=== PATIENT | female | born 1990 | race Hispanic/Latino ===

== ENCOUNTER 2024-05-13 13:26 | Emergency (ER) | payer SELFPAY ==
[2024-05-13 13:31] VITALS: TEMP 97.8
[2024-05-13 14:32] LABS: BASOPHILS # (AUTO) 0.1 (0.0-0.1); EOSINOPHILS # (AUTO) 0.1 (0.0-0.4); EOSINOPHILS % 1.6 % (0.0-6.0); LYMPHOCYTES # (AUTO) 2.5 (1.0-3.2); LYMPHOCYTES % 40.6 % (18.0-39.1); MEAN CORPUSCULAR HGB CONC 34.1 g/dL (31-35); MEAN CORPUSCULAR VOLUME 93.8 fL (81-99); MONOCYTES # (AUTO) 0.4 (0.2-0.8); MONOCYTES % 6.9 % (4.4-11.3); NEUTROPHILS # (AUTO) 3.1 (2.1-6.9); NEUTROPHILS % 49.6 % (38.7-80.0); PLATELET COUNT 311 x10e3/uL (140-360); RED BLOOD COUNT 4.69 x10e6/uL (3.6-5.1); RED CELL DISTRIBUTION WIDTH 12.8 % (11.7-14.4); WHITE BLOOD COUNT 6.26 x10e3/uL (4.8-10.8)
[2024-05-13 14:37] LABS: ALANINE AMINOTRANSFERASE 8 IU/L (0-55); ALBUMIN 4.3 g/dL (3.5-5.0); ALBUMIN/GLOBULIN RATIO 1.8 (0.8-2.0); ALKALINE PHOSPHATASE 53 IU/L (40-150); ANION GAP 15.9 mmol/L (8-16); BILIRUBIN,TOTAL 0.9 mg/dL (0.2-1.2); BLOOD UREA NITROGEN 12 mg/dL (7-26); BUN/CREATININE RATIO 15 (6-25); CALCIUM 8.8 mg/dL (8.4-10.2); CARBON DIOXIDE 21 mmol/L (22-29); CHLORIDE 105 mmol/L (98-107); CREATININE, SERUM 0.78 mg/dL (0.57-1.11); EST GLOMERULAR FILTRATION RATE 104 ML/MIN (>=60); GLUCOSE 89 mg/dL (74-118); MAGNESIUM 1.8 MG/DL (1.3-2.1); POTASSIUM 3.9 mmol/L (3.5-5.1); SODIUM 138 mmol/L (136-145); TOTAL PROTEIN 6.7 g/dL (6.5-8.1)
[2024-05-13] MEDS: SODIUM CHLORIDE 0.9% 1000ML 1,000 ML IV STA (14:48)
[2024-05-13 14:57] LABS: THYROID STIMULATING HORMONE 0.935 uIU/mL (0.350-4.940); TROPONIN I 0.004 ng/mL (0-0.300)
[2024-05-13 15:19] LABS: INR 0.98; PROTHROMBIN TIME 13.6 seconds (11.9-14.5)
[2024-05-13 15:20] LABS: PARTIAL THROMBOPLASTIN TIME 27.3 seconds (23.8-35.5)
[2024-05-13 15:34] VITALS: PULSE 78; RESP 18
[2024-05-13 15:35] LABS: OPIATES SCREEN,URINE NEGATIVE (NEGATIVE); PHENCYCLIDINE SCREEN,URINE NEGATIVE (NEGATIVE)
[2024-05-13 15:36] LABS: AMPHETAMINES SCREEN,URINE POSITIVE (NEGATIVE); BENZODIAZEPINES SCREEN,URINE NEGATIVE (NEGATIVE); CANNABINOIDS SCREEN,URINE POSITIVE (NEGATIVE); COCAINE SCREEN,URINE NEGATIVE (NEGATIVE); METHADONE SCREEN, URINE NEGATIVE (NEGATIVE)
[2024-05-13 16:29] VITALS: BP 106/64; PULSE 72; RESP 16; TEMP 98; O2SAT 99
== END 2024-05-13 16:30 | disposition home or self-care (01) ==
LOC: EDSEX 13:26 → ER 13:46
DX: R00.2 Palpitations (principal); R55 Syncope and collapse; F32.A Depression, unspecified
CPT/HCPCS: 36415; 70450; 71045; 72125; 80053; 80307; 83735; 84443; 84484; 84702; 85025; 85610; 85730; 93005; 99283; J7030